=== PATIENT | female | born 1950 | race Caucasian/White ===

== ENCOUNTER 2017-01-20 13:34 | Observation (INO) | payer OTHER ==
[~2017-01-20] VITALS: Ht 162.6 cm; Wt 70.5 kg
[2017-01-20 14:04] LABS: HEMOGLOBIN 14.4 gm/dl (12.3-15.3); RED BLOOD COUNT 4.26 M/UL (4.00-5.10); WHITE BLOOD COUNT 5.5 K/UL (4.5-11.0)
[2017-01-20 14:36] LABS: BUN/CREATININE RATIO 14 (0-10)
[2017-01-21 05:39] LABS: HEMOGLOBIN 14.3 gm/dl (12.3-15.3); RED BLOOD COUNT 4.17 M/UL (4.00-5.10); WHITE BLOOD COUNT 6.8 K/UL (4.5-11.0)
[2017-01-21 06:00] LABS: BUN/CREATININE RATIO 23 (0-10)
[2017-01-21 12:44] LABS: BUN/CREATININE RATIO 20 (0-10)
[2017-01-22 05:39] LABS: BUN/CREATININE RATIO 22 (0-10)
[2017-01-22] MEDS ORDERED: PRAVACHOL40 MG PO (08:56)
[2017-01-22] MEDS ORDERED: HYGROTON TAB 2525 MG PO (08:57)
[2017-01-22] MEDS ORDERED: MELOXICAM7.5 MG PO (09:25)
[2017-01-22] MEDS ORDERED: PRINIVIL20 MG PO (09:26)
[2017-01-22] MEDS ORDERED: ELIQUIS 5 MG TAB5 MG PO (14:17)
[2017-01-22] MEDS ORDERED: FOLIC ACID 1 MG1 MG PO (14:18)
[2017-01-22] MEDS ORDERED: SOTALOL80 MG PO (14:19)
[2017-01-22] MEDS ORDERED: THIAMINE HCL100 MG PO (14:20)
[2017-01-22] MEDS ORDERED: NITROSTAT0.4 MG SL (14:22)
[2017-01-22] MEDS ORDERED: ASPIR 8181 MG PO (14:24)
== END 2017-01-22 15:10 | disposition home or self-care (01) ==
LOC: ER1 13:34 → PROG CARE 16:45 → ZEROF 16:45 → PROG CARE 23:31
PROVIDERS: Emergency Medicine; Internal Medicine; ADMIT Internal Medicine Infectious Disease
PROC: 5A2204Z Restoration of Cardiac Rhythm, Single (ICD-10-PCS; principal; 2017-01-21)
DX: I48.91 Unspecified atrial fibrillation (principal); E87.1 Hypo-osmolality and hyponatremia; R07.89 Other chest pain; I10 Essential (primary) hypertension; M54.9 Dorsalgia, unspecified; G89.29 Other chronic pain; E87.6 Hypokalemia; F17.210 Nicotine dependence, cigarettes, uncomplicated; Z79.899 Other long term (current) drug therapy; Z72.89 Other problems related to lifestyle
CPT/HCPCS: 36415; 71010; 80048; 80053; 80061; 81001; 82436; 82550; 82553; 82570; 83036; 83735; 83874; 83880; 83935; 84133; 84300; 84439; 84443; 84484; 85025; 85610; 85730; 92960; 93005; 93312; 93320; 96365; 96366; 96375; 96376; 99285; G0378; J2250; J3480; J7030

== ENCOUNTER 2021-06-18 00:26 | Emergency (ER) | payer OTHER ==
[~2021-06-18] VITALS: Ht 154.9 cm; Wt 63.5 kg
[~2021-06-18 00:26] MED LIST: ASPIR 8181 MG PO; CALCIUM600 MG PO; CARDIZEM CD120 MG PO; DAILY MULTIPLE1 EAC1 PO; ELIQUIS 5 MG TAB5 MG PO; FOLIC ACID 1 MG1 MG PO; HYDROCHLOROTHIA25 MG PO; HYGROTON TAB 2525 MG PO; K-DUR TAB 20 M20 MEQ PO; MELOXICAM7.5 MG PO; MULTAQ400 MG PO; NITROSTAT0.4 MG SL; PERCOCET 10-321 EACH PO; PRAVACHOL40 MG PO; PRINIVIL20 MG PO; PROTONIX40 MG PO; SOTALOL80 MG PO; THIAMINE HCL100 MG PO; VITAMIN B-1100 MG PO
[2021-06-18 00:59] LABS: RED BLOOD COUNT 2.03 M/UL (4.00-5.10); WHITE BLOOD COUNT 10.5 K/UL (4.5-11.0)
[2021-06-18 01:01] LABS: HEMOGLOBIN 4.7 gm/dl (12.3-15.3)
[2021-06-18 02:45] LABS: HEMOGLOBIN 6.9 gm/dl (12.3-15.3)
[2021-06-18 05:59] LABS: HEMOGLOBIN 8.1 gm/dl (12.3-15.3)
[2021-06-18 08:27] LABS: HEMOGLOBIN 8.4 gm/dl (12.3-15.3)
[2021-06-18 11:41] LABS: RED BLOOD COUNT 3.52 M/UL (4.00-5.10); WHITE BLOOD COUNT 7.8 K/UL (4.5-11.0)
[2021-06-18 23:10] LABS: HEMOGLOBIN 8.6 gm/dl (12.3-15.3); RED BLOOD COUNT 3.39 M/UL (4.00-5.10)
[2021-06-18 23:12] LABS: WHITE BLOOD COUNT 9.8 K/UL (4.5-11.0)
[2021-06-19 06:42] LABS: HEMOGLOBIN 8.5 gm/dl (12.3-15.3); RED BLOOD COUNT 3.36 M/UL (4.00-5.10)
[2021-06-19 06:46] LABS: WHITE BLOOD COUNT 13.8 K/UL (4.5-11.0)
[2021-06-19 14:16] LABS: HEMOGLOBIN 9.2 gm/dl (12.3-15.3)
[2021-06-19 23:38] LABS: HEMOGLOBIN 10.1 gm/dl (12.3-15.3)
[2021-06-20 06:01] LABS: HEMOGLOBIN 8.8 gm/dl (12.3-15.3)
[2021-06-20 06:25] LABS: BUN/CREATININE RATIO 14 (0-10)
== END 2021-06-20 21:00 | disposition short-term general hospital (02) ==
LOC: ER1 00:26
PROVIDERS: Emergency Medicine; Family Medicine; Internal Medicine; Internal Medicine Nephrology; Physician Assistant; Physician Assistant Medical
DX: N17.9 Acute kidney failure, unspecified (principal); K92.2 Gastrointestinal hemorrhage, unspecified; D64.9 Anemia, unspecified; E87.1 Hypo-osmolality and hyponatremia; I25.10 Atherosclerotic heart disease of native coronary artery without angina pectoris; I48.91 Unspecified atrial fibrillation; I10 Essential (primary) hypertension; E87.2 Acidosis; E78.5 Hyperlipidemia, unspecified; Z79.01 Long term (current) use of anticoagulants; Z20.822 Contact with and (suspected) exposure to COVID-19
CPT/HCPCS: 31500; 36430; 36600; 51702; 70450; 71045; 71275; 80048; 80053; 80202; 80307; 81001; 82272; 82550; 82553; 82803; 83605; 83690; 83735; 83874; 84484; 85014; 85018; 85025; 85027; 85610; 86850; 86900; 86901; 86920; 87040; 87086; 92610; 93005; 94002; 94660; 94760; 96365; 96366; 96367; 96375; 96376; 99285; C9113; G0480; J2185; J2250; J2704; J3370; J7030; J7070; J7131; J7168; P9016; Q9967; U0002

== ENCOUNTER 2022-01-25 14:36 | Emergency (ER) | payer MEDICARE, OTHER ==
[~2022-01-25 14:36] MED LIST changes: -HYDROCODON-ACE1 EAC4 PO
[2022-01-25] MEDS ORDERED: HYDROCODON-ACE1 EAC4 PO (18:36)
== END 2022-01-25 18:41 | disposition home or self-care (01) ==
LOC: ER1 14:36
DX: S12.110A Anterior displaced Type II dens fracture, initial encounter for closed fracture (principal); I10 Essential (primary) hypertension; Z79.01 Long term (current) use of anticoagulants; W01.0XXA Fall on same level from slipping, tripping and stumbling without subsequent striking against object, initial encounter; Y92.009 Unspecified place in unspecified non-institutional (private) residence as the place of occurrence of the external cause
CPT/HCPCS: 99283

== ENCOUNTER → 2022-01-25 | Outpatient (CLI) | payer MEDICARE, OTHER ==
[~2022-01-25] MED LIST changes: +HYDROCODON-ACE1 EAC4 PO
== END ==
LOC: KOH-I 11:30
DX: S09.90XA Unspecified injury of head, initial encounter (principal); S19.9XXA Unspecified injury of neck, initial encounter; M25.511 Pain in right shoulder; S20.211A Contusion of right front wall of thorax, initial encounter; S12.9XXA Fracture of neck, unspecified, initial encounter; M47.814 Spondylosis without myelopathy or radiculopathy, thoracic region; K44.9 Diaphragmatic hernia without obstruction or gangrene
CPT/HCPCS: 70450; 70486; 71046; 72070; 72125; 73030

== ENCOUNTER → 2022-01-29 | Outpatient (CLI) | payer MEDICARE, OTHER ==
[~2022-01-29] MED LIST changes: +HYDROCODON-ACE1 EAC4 PO
== END ==
LOC: MRI 13:51
DX: M54.2 Cervicalgia (principal); M48.02 Spinal stenosis, cervical region
CPT/HCPCS: 72141

== ENCOUNTER → 2022-03-18 | Outpatient (CLI) | payer MEDICARE, OTHER | LOC: KOH-I 14:01 | DX: M25.552 Pain in left hip (principal); M25.551 Pain in right hip | CPT/HCPCS: 73522 ==